=== PATIENT | male | born 1980 | race African-American/Black ===

== ENCOUNTER 2018-06-03 07:36 | Emergency (ER) | payer MEDICAID, OTHER ==
[~2018-06-03] VITALS: Ht 167.6 cm; Wt 73.5 kg
[2018-06-03 08:13] LABS: Basophils # (auto) 0.1 uL; Basophils % (auto) 2.1 % (0.0-2.0); Eosinophils # (auto) 0.2 uL; Eosinophils % (auto) 2.8 % (0.0-7.0); Hematocrit 43.2 % (41.0-53.0); Hemoglobin 14.4 g/dL (13.5-17.5); Lymphocytes # (auto) 2.4 uL; Lymphocytes % (auto) 40.2 % (10.0-50.0); Mean Corpuscular Hemoglobin 28.4 pg (28.0-32.0); Mean Corpuscular Hgb Conc. 33.2 g/dL (32.0-36.0); Mean Corpuscular Volume 85.4 fL (80.0-100.0); Monocytes # (auto) 0.6 uL; Neutrophils # (auto) 2.7 uL; Neutrophils % (auto) 44.9 % (37.0-80.0); Nucleated Red Blood Cells % 0.1 %; Platelet Count (auto) 219 10^3/uL (140-450); Red Blood Cells 5.06 10^6/uL (4.5-5.90)
[2018-06-03 08:31] LABS: Alanine Aminotransferase 20 U/L (16-61); Albumin 3.8 g/dL (3.4-5.0); Anion Gap 4 (5-15); Blood Urea Nitrogen 15 mg/dL (7-18); Calcium 8.4 mg/dL (8.5-10.1); Carbon Dioxide 26 mmol/L (21-32); Chloride 109 mmol/L (98-107); Glucose 90 mg/dL (74-106); Potassium 4.1 mmol/L (3.5-5.1); Sodium 139 mmol/L (136-145)
[2018-06-03 08:36] LABS: Alkaline Phosphatase 76 U/L (45-117); Aspartate Aminotransferase 23 U/L (15-37); BUN/Creatinine Ratio 13.6; Bilirubin, Total 0.2 mg/dL (0.2-1.0); GFR African American > 60 mL/min; GFR Non-African American > 60 mL/min; Total Protein 7.3 g/dL (6.4-8.2)
[2018-06-03 10:12] VITALS: BP 122/71
== END 2018-06-03 10:10 | disposition home or self-care (01) ==
LOC: ER 07:36
DX: R07.89 Other chest pain (principal); R11.2 Nausea with vomiting, unspecified; R55 Syncope and collapse
CPT/HCPCS: 36415; 71046; 80053; 84484; 85025; 93005